=== PATIENT | female | born 1930 | race Caucasian/White ===

== ENCOUNTER → 2016-06-24 | Outpatient (CLI) | payer MEDICARE, BC | LOC: GMAJ 10:31 | PROVIDERS: ATTEND Family Medicine | DX: E11.9 Type 2 diabetes mellitus without complications (principal); I10 Essential (primary) hypertension; E78.5 Hyperlipidemia, unspecified ==

== ENCOUNTER 2016-10-20 13:37 | Emergency (ER) | payer MEDICARE ==
[2016-10-20 13:49] VITALS: TEMP 98.5
--- NOTE | 2016-10-20 14:00 | ED.PDOC ---
History of Present Illness - General Chief Complaint: Chest Pain/WI Stated Complaint: Chest discomfort Time Seen by Provider: 10/20/16 13:57 Source: patient, family Exam Limitations: no limitations - History of Present Illness Initial Comments: Patient reports sudden onset of chest pain that is described as being located in bilateral breasts. Patient states that pain was sharp and 7 out of 10 in intensity. Patient reports that pain lasted approximately 2 hours before subsiding on its own. Patient denies pain at the current time. She states that she had a similar episode last night that began during dinner time however the pain subsided when patient laid down to go to sleep. Timing/Duration: 7-24 hours, intermittent, resolved prior to arrival Severity/Quality: moderate, sharp Chest Pain Radiation: no radiation Activities at Onset: none Improving Factors: nothing Worsening Factors: nothing Nitro Today/Relief: no nitro taken today Aspirin Treatment Today: 81 mg x 1 Associated Symptoms: denies symptoms Allergies/Adverse Reactions: Allergies Sulfa Antibiotics Allergy (Verified 10/20/16 13:45) Home Medications: Ambulatory Orders Aspirin [Aspirin Adult Low Dose] 81 mg PO DAILY 10/20/16 Atenolol [Tenormin] 25 mg PO DAILY 10/20/16 glipiZIDE [Glucotrol] 5 mg PO DAILY 10/20/16 metFORMIN HCL [Glucophage] 1,000 mg PO BID 10/20/16 Review of Systems - Review of Systems Constitutional: Denies: chills, fever EENTM: Denies: ear pain, throat pain Respiratory: States: cough - chronic. Denies: short of breath Cardiology: States: see HPI, chest pain. Denies: palpitations, syncope Gastrointestinal/Abdominal: Denies: abdominal pain, diarrhea, nausea Genitourinary: Denies: dysuria, frequency Musculoskeletal: Denies: joint pain, muscle pain Skin: Denies: change in color, lesions Neurological: Denies: numbness, paresthesia Endocrine: Denies: increased hunger, increased thirst Family Medical History - Family History Mother Family History: No Known Living Status: Physical Exam - Physical Exam General Appearance: Alert, Comfortable, No apparent distress, Well Developed, Well Groomed, Well Hydrated Eyes, Ears, Nose, Throat Exam: normal ENT inspection Neck: normal inspection Respiratory: chest non-tender, lungs clear, normal breath sounds Cardiovascular/Chest: regular rate, rhythm, no murmur Gastrointestinal/Abdominal: non tender, soft Extremity: normal range of motion, no calf tenderness, pedal edema - 1+ Neurologic: no motor/sensory deficits, alert, normal mood/affect, oriented x 3 Skin Exam: normal color, warm/dry Progress - Progress Progress: 10/20/16 15:00 Patient is resting comfortably at this time vital signs remained stable. There has been no reoccurrence of chest pain since patient has been in the ED. Old records were reviewed revealing patient has not been to the emergency department for evaluation in the past.lab findings discussed with patient and family members at bedside. In light of normal EKG and unremarkable lab work including cardiac enzymes I feel patient is appropriate for discharge and outpatient follow-up with PCP as chest pain is atypical in nature and has resolved on its own. Patient and family members were instructed to return if chest pain returns or symptoms worsen. - EKG/XRAY/CT EKG: Sinus - @68bpm, nl intervals, nl axis, good r wave progression, no ST T wave changes - no previous ekg for comparison. XRAY: chest - no acute findings as per rad. Departure - Departure Clinical Impression: Atypical chest pain Time of Disposition: 15:29 Disposition: Discharge to Home or Self Care Condition: Good Departure Forms: ED Discharge - Pt. Copy, Patient Portal Self Enrollment Instructions: DI for Atypical Chest Pain Diet: resume usual diet Home Medications: Ambulatory Orders Aspirin [Aspirin Adult Low Dose] 81 mg PO DAILY 10/20/16 Atenolol [Tenormin] 25 mg PO DAILY 10/20/16 glipiZIDE [Glucotrol] 5 mg PO DAILY 10/20/16 metFORMIN HCL [Glucophage] 1,000 mg PO BID 10/20/16 Additional Instructions: Follow-up with primary care physician in one to 2 days for further evaluation and treatment.
[2016-10-20] MEDS ORDERED: SODIUM CHLORIDE 0.9% (FLUSH) 10 ML SYG IV PRN (14:07)
[2016-10-20] MEDS ORDERED: ASPIRIN TABLET 325 MG TAB PO ONE (14:07)
--- NOTE | 2016-10-20 14:28 | RAD ---
EXAM DESCRIPTION: Chest,1 View CLINICAL HISTORY: 85 years, Female, chest pain COMPARISON: July 02 FINDINGS: Adequate inspiration. Scarring at the lung bases. Old left rib fractures. Cardiac silhouette normal. S-curvature of the thoracolumbar spine IMPRESSION: Chronic lung change with normal heart size Electronically signed by: Jerry Sandy MD 10/20/2016 2:28 PM CDT
[2016-10-20 15:37] VITALS: BP 186/81; O2SAT 97
== END 2016-10-20 15:42 | disposition home or self-care (01) ==
LOC: ER 13:37
DX: R07.89 Other chest pain (principal); Z88.2 Allergy status to sulfonamides; Z79.82 Long term (current) use of aspirin; Z79.899 Other long term (current) drug therapy

== ENCOUNTER → 2016-12-22 | Outpatient (CLI) | payer MEDICARE | LOC: YCHH 08:31 | PROVIDERS: ATTEND Family Medicine | DX: E11.9 Type 2 diabetes mellitus without complications (principal); G62.9 Polyneuropathy, unspecified; E78.5 Hyperlipidemia, unspecified; D64.9 Anemia, unspecified; E03.9 Hypothyroidism, unspecified ==

== ENCOUNTER → 2017-10-21 | Outpatient (CLI) | payer MEDICARE ==
--- NOTE | 2017-10-21 12:11 | MRI ---
EXAM DESCRIPTION: Brain w/oContrast CLINICAL HISTORY: 86 years Female, TIA COMPARISON: None available. TECHNIQUE: Multiplanar multiecho imaging of the brain was performed without the administration of intravenous contrast. FINDINGS: Moderate periventricular white matter ischemia and moderate diffuse cortical volume loss is noted. No acute major vascular territorial infarct or acute intraparenchymal hemorrhage. No intra-axial or extra-axial fluid collections are identified. The cisterns and ventricles appear normal in caliber. The sella and suprasellar regions demonstrate no gross abnormality. The structures of the posterior fossa are intact. The visualized paranasal sinuses and mastoid air cells appear normal. The globes are intact bilaterally. Review of the bones demonstrates no gross abnormality. IMPRESSION: Moderate periventricular white matter ischemia and moderate diffuse cortical volume loss is noted. No acute intracranial process. Electronically signed by: Analia Rosales MD 10/21/2017 12:10 PM CDT
== END ==
LOC: MRI 09:00
PROVIDERS: ATTEND Family Medicine
DX: G45.9 Transient cerebral ischemic attack, unspecified (principal)

== ENCOUNTER → 2018-02-23 | Outpatient (CLI) | payer MEDICARE ==
--- NOTE | 2018-02-23 14:57 | RAD ---
EXAM DESCRIPTION: Chest,2 Views CLINICAL HISTORY: Cough COMPARISON: Chest radiograph dated October 28, 2017 TECHNIQUE: PA and lateral views of the chest FINDINGS: Cardiomediastinal silhouette and pulmonary vascularity are within normal limits. Lungs are clear without focal consolidations. Costophrenic angles are sharp. No pneumothorax. Degenerative changes of the thoracic spine. IMPRESSION: No radiographic evidence for acute cardiopulmonary process. Electronically signed by: Iain Manzanares MD 02/23/2018 2:55 PM CDT
== END ==
LOC: RAD 14:30
PROVIDERS: ATTEND Family Medicine
DX: R05 Cough (principal)

== ENCOUNTER → 2018-04-14 | Outpatient (CLI) | payer MEDICARE | LOC: YCHH 15:34 | PROVIDERS: ATTEND Family Medicine | DX: N39.0 Urinary tract infection, site not specified (principal) ==

== ENCOUNTER → 2018-04-22 | Outpatient (CLI) | payer MEDICARE | LOC: YCHH 10:34 | PROVIDERS: ATTEND Family Medicine | DX: E11.21 Type 2 diabetes mellitus with diabetic nephropathy (principal); N39.0 Urinary tract infection, site not specified; D64.9 Anemia, unspecified ==

== ENCOUNTER → 2018-05-04 | Outpatient (CLI) | payer MEDICARE | LOC: GMAJ 11:09 | PROVIDERS: ATTEND Family Medicine | DX: G30.9 Alzheimer's disease, unspecified (principal) ==

== ENCOUNTER → 2018-05-11 | Outpatient (CLI) | payer MEDICARE ==
--- NOTE | 2018-05-11 13:58 | MRI ---
EXAM DESCRIPTION: Brain w/oContrast CLINICAL HISTORY: ALZHEIMER'S DISEASE COMPARISON: None available TECHNIQUE: Non contrast MRI of the brain is performed according to our usual protocol including multiplanar multi sequence technique. FINDINGS: Sagittal T1 images show intact corpus callosum. Prominent gyral and sulcal fold pattern. Mild thinning of the corpus callosum. Empty sella is incidentally noted. Normal pituitary gland with normal T1 appearance of the zachary and medulla and upper cervical cord. Normal signal intensity within the clivus and calvarium. Axial T2 fat sat images reveal preservation of intracranial vascular flow voids. Extensive increased signal intensity in the white matter consistent with chronic microvascular ischemic changes. Prominent sulci with prominent ventricles are consistent with generalized age-related cerebral volume loss. Temporal horns are prominent and there is thinning of the medial temporal lobe right more than left. The globes appear intact and symmetrical. No abnormal fluid signal in the paranasal sinuses, tympanic cavities or mastoid air cells. Axial flair images show increased signal intensity in the periventricular white matter, centrum semiovale and subcortical white matter consistent with chronic microvascular ischemic changes related to aging, diabetes or hypertension. Marked thinning of the medial temporal lobes, right more than left, is consistent with the clinical diagnosis of Alzheimer's disease. Extensive microvascular ischemic changes in the cerebral white matter would be consistent with multi-infarct dementia. Diffusion weighted images are positive for focal increased signal intensity in the left occipital castandea matter and subcortical white matter indicating restricted diffusion of subacute infarction. ADC mapping shows low in signal intensity in this area. Axial T1 images show normal castaneda-white matter differentiation. No high signal intensity hemorrhagic lesion of the brain parenchyma. No subdural hematoma. Axial susceptibility weighted images are negative for focal signal loss to suggest abnormal brain parenchymal calcification or hemosiderin deposition. IMPRESSION: Small focus of restricted diffusion in the left occipital lobe suggesting subacute infarction. Generalized cerebral volume loss with prominent ventricles consistent with global atrophy. See above. Extensive chronic microvascular ischemic changes in the cerebral white matter. Electronically signed by: Tavo Carrington MD 05/11/2018 1:57 PM [employer]
== END ==
LOC: MRI 10:12
PROVIDERS: ATTEND Family Medicine
DX: G30.9 Alzheimer's disease, unspecified (principal); I67.82 Cerebral ischemia

== ENCOUNTER 2018-12-12 12:05 | Emergency (ER) | payer MEDICARE ==
[2018-12-12 12:43] VITALS: TEMP 98.5
--- NOTE | 2018-12-12 12:44 | ED.PDOC ---
History of Present Illness - General Time Seen by Provider: 12/12/18 12:37 Source: patient Exam Limitations: no limitations - History of Present Illness Initial Comments: Patient presents with bilateral thoracic pain for 18 months. It is throbbing, non-radiating, worse with movement, better with rest, constant. Today, her home health nurse was taking her blood pressure and she felt pain in the sternum. She was instructed to come here. Has NIDDM. No cardiac history. No first degree relatives with cardiac disease. No history of tobacco use. No history of bipedal edema. No orthopnea. Has AZEVEDO at 20 feet. Has a history of asthma that she says is from second hand smoke from her father. She does not currently use any inhalers and denies COPD. No other complaints today. Timing/Duration: other - 18 months Severity: mild Improving Factors: rest Worsening Factors: movement Associated Symptoms: other - as in HPI Allergies/Adverse Reactions: Allergies Bacitracin [From Polysporin] Allergy (Verified 10/28/17 08:02) Latex Allergy (Verified 10/28/17 08:02) Penicillins Allergy (Verified 10/28/17 08:02) Polymyxin B [From Polysporin] Allergy (Verified 10/28/17 08:02) Sulfa Antibiotics Allergy (Verified 10/20/16 13:45) Home Medications: Ambulatory Orders Aspirin [Aspirin Adult Low Dose] 81 mg PO DAILY 10/20/16 glipiZIDE [Glucotrol] 5 mg PO DAILY 10/20/16 metFORMIN HCL [Glucophage] 1,000 mg PO BID 10/20/16 Buspirone HCl 5 mg PO BID 12/12/18 Calcium Carbonate-Vitamin D [Calcium + D3 600-200 mg-Unit] 1 tab PO DAILY 12/12/18 Donepezil HCl [Aricept] 5 mg PO DAILY 12/12/18 Fluticasone Propionate (Nasal) [Hm Allergy Relief Nasal S] 50 mcg INH DAILY 12/12/18 Metoprolol Succinate [Metoprolol Succinate ER] 25 mg PO DAILY 12/12/18 Ondansetron HCl [Zofran] 4 mg PO PRN PRN 12/12/18 Review of Systems - Review of Systems Constitutional: States: no symptoms reported EENTM: States: no symptoms reported Respiratory: States: see HPI Cardiology: States: no symptoms reported Gastrointestinal/Abdominal: States: no symptoms reported Genitourinary: States: no symptoms reported Musculoskeletal: States: see HPI Skin: States: no symptoms reported Neurological: States: no symptoms reported Endocrine: States: no symptoms reported Hematologic/Lymphatic: States: no symptoms reported Past Medical History (General) - Patient Medical History Hx Seizures: No Hx Stroke: No Hx Asthma: No Hx of COPD: No Hx Cardiac Disorders: No Hx Congestive Heart Failure: No Hx Pacemaker: No Hx Hypertension: Yes Hx Diabetes: Yes Hx Cancer: Yes Family Medical History - Family History Mother Family History: No Known Living Status: Hx Family Cancer: Yes - colon-mom Hx Family;Other: dad-amyloidosis,copd Physical Exam - Physical Exam General Appearance: Alert Eye Exam: bilateral normal Ears, Nose, Throat: normal ENT inspection Neck: non-tender, full range of motion, supple Respiratory: chest non-tender, lungs clear, normal breath sounds, no respiratory distress Cardiovascular/Chest: normal peripheral pulses, regular rate, rhythm, no edema, other - ribs and sternum NTTP Gastrointestinal/Abdominal: normal bowel sounds, non tender, soft Back Exam: normal inspection, no CVA tenderness Extremity: normal range of motion, non-tender, normal inspection 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, no motor/sensory deficits, alert, normal mood/affect, oriented x 3 Skin Exam: normal color Lymphatic: no adenopathy Progress - Progress Progress: 12/12/18 16:57 Laboratory Tests 12/12/18 12/12/18 12/12/18 12:55 12:55 12:55 WBC 9.8 RBC 3.56 L Hgb 11.3 L Hct 33.7 L MCV 94.5 MCH 31.6 H MCHC 33.4 RDW 13.4 Plt Count 280 MPV 8.4 Absolute Neuts (auto) 7.40 H Absolute Lymphs (auto) 1.50 Absolute Monos (auto) 0.60 Absolute Eos (auto) 0.20 Absolute Basos (auto) 0.00 Neutrophils % 75.9 Lymphocytes % 15.1 L Monocytes % 6.2 Eosinophils % 2.4 Basophils % 0.4 PT 9.8 INR 0.98 PTT (SP) 26.7 D-Dimer, Quantitative Sodium 137 Potassium 4.9 Chloride 102 Carbon Dioxide 23 Anion Gap 16.9 BUN 24 H Creatinine 1.01 BUN/Creatinine Ratio 23.8 H POC Glucose Random Glucose 68 L Serum Osmolality 276.2 Calcium 9.5 Total Bilirubin 0.3 AST 17 ALT 13 Alkaline Phosphatase 47 Creatine Kinase CK-MB (CK-2) CK-MB (CK-2) % Troponin I B-Natriuretic Peptide Serum Total Protein 7.3 Albumin 3.8 Globulin 3.5 Albumin/Globulin Ratio 1.1 TSH Thyroxine (T4) 12/12/18 12/12/18 12/12/18 12:55 12:55 12:55 WBC RBC Hgb Hct MCV MCH MCHC RDW Plt Count MPV Absolute Neuts (auto) Absolute Lymphs (auto) Absolute Monos (auto) Absolute Eos (auto) Absolute Basos (auto) Neutrophils % Lymphocytes % Monocytes % Eosinophils % Basophils % PT INR PTT (SP) D-Dimer, Quantitative 0.72 H* Sodium Potassium Chloride Carbon Dioxide Anion Gap BUN Creatinine BUN/Creatinine Ratio POC Glucose 65 L Random Glucose Serum Osmolality Calcium Total Bilirubin AST ALT Alkaline Phosphatase Creatine Kinase 31 CK-MB (CK-2) 1.9 CK-MB (CK-2) % Not Reportable Troponin I < 0.02 B-Natriuretic Peptide 29.1 Serum Total Protein Albumin Globulin Albumin/Globulin Ratio TSH 3.60 Thyroxine (T4) 8.50 12/12/18 15:20 WBC RBC Hgb Hct MCV MCH MCHC RDW Plt Count MPV Absolute Neuts (auto) Absolute Lymphs (auto) Absolute Monos (auto) Absolute Eos (auto) Absolute Basos (auto) Neutrophils % Lymphocytes % Monocytes % Eosinophils % Basophils % PT INR PTT (SP) D-Dimer, Quantitative Sodium Potassium Chloride Carbon Dioxide Anion Gap BUN Creatinine BUN/Creatinine Ratio POC Glucose Random Glucose Serum Osmolality Calcium Total Bilirubin AST ALT Alkaline Phosphatase Creatine Kinase CK-MB (CK-2) CK-MB (CK-2) % Troponin I < 0.02 B-Natriuretic Peptide Serum Total Protein Albumin Globulin Albumin/Globulin Ratio TSH Thyroxine (T4) Troponin x 2 negative. EKG showed NSR. Follow up EKG showed tachycardia. The episodes of tachycardia were infrequent and only lasted a few seconds. The patient's symptoms did not change during tachycardia. I spoke with her pcp, Dr. Carrasquillo, and it was agreed to fit the patient with a Holter monitor and see how often these events occur and if they need to be treated or are just an incidental and temporary finding. Care instructions given. E.R. warnings given. Questions were elicited and answered. Patient voiced understanding and agreement with the plan. Departure - Departure Clinical Impression: Chest pain, Tachycardia, paroxysmal Disposition: Discharge to Home or Self Care Condition: Good Diet: resume usual diet Activity: increase activity as tolerated Referrals: Junior Carrasquillo MD [Primary Care Provider] - 1-2 Weeks Home Medications: Ambulatory Orders Aspirin [Aspirin Adult Low Dose] 81 mg PO DAILY 10/20/16 glipiZIDE [Glucotrol] 5 mg PO DAILY 10/20/16 metFORMIN HCL [Glucophage] 1,000 mg PO BID 10/20/16 Buspirone HCl 5 mg PO BID 12/12/18 Calcium Carbonate-Vitamin D [Calcium + D3 600-200 mg-Unit] 1 tab PO DAILY 12/12/18 Donepezil HCl [Aricept] 5 mg PO DAILY 12/12/18 Fluticasone Propionate (Nasal) [Hm Allergy Relief Nasal S] 50 mcg INH DAILY 12/12/18 Metoprolol Succinate [Metoprolol Succinate ER] 25 mg PO DAILY 12/12/18 Ondansetron HCl [Zofran] 4 mg PO PRN PRN 12/12/18 Additional Instructions: Return the Holter monitor in 48 hours for evaluation. See Dr. Carrasquillo in 5-7 days for follow up. Return to the E.R. for new or worsening symptoms. Critical Care Note - Critical Care Note Total Time (mins): 120
[2018-12-12] MEDS ORDERED: ASPIRIN (CHEWABLE) 81 MG TAB PO ONE (12:47)
--- NOTE | 2018-12-12 13:29 | RAD ---
EXAM DESCRIPTION: Chest,2 Views CLINICAL HISTORY: 87 years Female, bilateral side pain COMPARISON: Chest radiograph 02/23/2018 TECHNIQUE: Frontal and lateral views of the chest. IMPRESSION: Cardiac silhouette is normal in size. Aorta is partially calcified. Scattered bibasilar scarring or atelectasis. There is a 2.5 cm ovoid density in the left lung apex. CT chest with contrast can further evaluate. No pleural effusion or pneumothorax. Chronic left rib fractures. Thoracic spondylosis. Electronically signed by: Woo North MD 12/12/2018 1:27 PM CDT
--- NOTE | 2018-12-12 14:58 | CT ---
EXAM DESCRIPTION: CTA Chest CLINICAL HISTORY: side pain, sternal pain, elveated D-dimer COMPARISON: Chest x-ray from the same day. TECHNIQUE: Postcontrast multidetector CT imaging of the chest was performed using a pulmonary embolism protocol. Multiplanar reconstructions were generated. This exam was performed according to our departmental dose-optimization program which includes automated exposure control, adjustment of the mA and/or kV according to patient size and/or use of iterative reconstruction technique. MIP images were provided. No surface rendered 3-D images. FINDINGS: Diagnostic quality: Adequate. Pulmonary embolism: None. Right heart strain: None. Pulmonary arteries: Normal in caliber. Lung parenchyma: No acute airspace filling disease is present. No concerning pulmonary nodules. Trace atelectasis usual distribution. Pleural effusion: None. Central airways: Normal. Adenopathy: None. Heart and great vessels: Heart size is normal. Coronary vascular calcifications are present. No pericardial effusion. There is atherosclerotic disease involving the left subclavian contributing to a mild stenosis. No high-grade stenosis of the subclavian arteries. Upper abdomen: Unremarkable. Bones: No aggressive lytic or blastic osseous lesions are present. Multilevel bridging syndesmophytes noted throughout most of the thoracic spine. This can be seen with a seronegative spondyloarthropathy such as ankylosing spondylitis. Diffuse idiopathic skeletal hyperostosis is within the differential. Advanced degenerative spondylosis noted within the visualized portions of the lumbar spine on the bellmaker view. IMPRESSION: Negative for pulmonary embolism or acute cardiopulmonary disease. Coronary vascular disease. Incidental chronic findings described above. Ovoid density seen on comparison chest x-ray from the same day projecting over the left lung apex is extrinsic to the patient. Electronically signed by: Delonte Potts MD 12/12/2018 2:56 PM CDT
[2018-12-12 15:38] VITALS: BP 161/95
[2018-12-12 17:16] VITALS: O2SAT 96
== END 2018-12-12 17:22 | disposition home or self-care (01) ==
LOC: ER 12:05
DX: R07.9 Chest pain, unspecified (principal); I47.9 Paroxysmal tachycardia, unspecified; I10 Essential (primary) hypertension; E11.9 Type 2 diabetes mellitus without complications; Z85.9 Personal history of malignant neoplasm, unspecified; Z79.82 Long term (current) use of aspirin; Z79.899 Other long term (current) drug therapy; Z88.2 Allergy status to sulfonamides; Z88.0 Allergy status to penicillin; Z88.8 Allergy status to other drugs, medicaments and biological substances; Z91.040 Latex allergy status

== ENCOUNTER 2018-12-13 15:49 | Emergency (ER) | payer MEDICARE ==
[2018-12-13] MEDS ORDERED: ASPIRIN TABLET 325 MG TAB PO ONE (15:52)
[2018-12-13] MEDS ORDERED: ALUM & MAG HYDROX-SIMETHICONE 30 ML, LIDOCAINE VISCOUS 2% 15 ML PO ONE ×2 (15:52)
[2018-12-13] MEDS ORDERED: LIDOCAINE HCL 2% (MOUTH-THROAT) 15 ML UD ONE (15:55)
[2018-12-13] MEDS ORDERED: ALUM & MAG HYDROX-SIMETHICONE 30 ML UD ONE (15:56)
[2018-12-13] MEDS ORDERED: METOPROLOL TARTRATE 25 MG TAB PO ONE (16:03)
--- NOTE | 2018-12-13 16:50 | RAD ---
EXAM DESCRIPTION: Obstructive series, 3 radiographs CLINICAL HISTORY: Epigastric and substernal abdominal pain. Chest pain FINDINGS/ IMPRESSION: Comparison 12/12/2018 Scattered large and small intestinal bowel gas without luminal distention to diagnose mechanical bowel obstruction. No pneumatosis. No free intraperitoneal air. No organomegaly or obvious abdominal mass lesion Normal heart size. Atherosclerotic aorta. Normal mediastinal contours No pulmonary edema, infiltrate or effusion No pneumothorax. No acute bony abnormality Electronically signed by: Jacobo Doherty MD 12/13/2018 4:47 PM CDT
[2018-12-13] MEDS ORDERED: MAGNESIUM SULFATE PREMIX 2GM 2 GM in PREMIX BAG 1 BAG IVPB ONE (17:16)
[2018-12-13] MEDS ORDERED: MAGNESIUM SULFATE PREMIX 2GM 50 ML IVPB ONE (17:32)
--- NOTE | 2018-12-13 18:03 | CT ---
EXAM: CT Abdomen and Pelvis Without Intravenous Contrast CLINICAL HISTORY: 87 years old and is Female; epigastric pain, rise in wbc TECHNIQUE: Axial computed tomography images of the abdomen and pelvis without intravenous contrast. Sagittal and coronal reformatted images were created and reviewed. This CT exam was performed using one or more of the following dose reduction techniques: automated exposure control, adjustment of the mA and/or kV according to patient size, and/or use of iterative reconstruction technique. COMPARISON: 12/12/2018 CT chest FINDINGS: Limitations: None. Lung bases: There is a 7 mm noncalcified right lower lobe pulmonary nodule. Linear scarring and/or atelectasis present in the bases. ABDOMEN: Liver: Unremarkable. Gallbladder and bile ducts: Unremarkable. No calcified stones. No ductal dilation. Pancreas: Unremarkable. No ductal dilation. Spleen: Unremarkable. No splenomegaly. Adrenals: Unremarkable. No mass. Kidneys and ureters: Unremarkable. No obstructing stones. No hydronephrosis. Stomach and bowel: Despite incomplete distention, the distal stomach and proximal duodenum are thickened and inflamed. No evidence of acute hemorrhage. There is colonic diverticulosis. No diverticulitis noted. There is mild fluid layering throughout the intestinal tract without obstruction. PELVIS: Appendix: No findings to suggest acute appendicitis. Bladder: Unremarkable. No stones. Reproductive: Unremarkable as visualized. ABDOMEN and PELVIS: Intraperitoneal space: Unremarkable. No free air. No significant fluid collection. Bones/joints: There is diffuse degenerative change throughout the spine and hips. No acute fracture. No dislocation. Soft tissues: Unremarkable. Vasculature: Unremarkable. No abdominal aortic aneurysm. Lymph nodes: Unremarkable. No enlarged lymph nodes. IMPRESSION: 1. There is thickening and inflammation of the distal stomach and proximal duodenum most concerning for peptic ulcer disease. No evidence of hemorrhage or perforation. 2. 7 mm right lower lobe pulmonary nodule. ACR White Paper guidelines (MacMahon, et al. Radiology 2017; 284(1):228-43) suggest the following. For low-risk patients recommend follow-up chest CT at 6-12 months. If unchanged consider an additional follow-up CT at 18-24 months. For high-risk patients initial follow-up chest CT at 6-12 months and if unchanged, 18-24 months. Electronically signed by: Faiza Basurto MD 12/13/2018 6:00 PM CDT
--- NOTE | 2018-12-13 18:22 | ED.PDOC ---
History of Present Illness - General Chief Complaint: Chest Pain/IN Stated Complaint: Chest pain Time Seen by Provider: 12/13/18 15:52 Source: patient Exam Limitations: no limitations - History of Present Illness Initial Comments: the patient is an 87-year-old female presenting to the emergency room secondary to epigastric and substernal chest pain starting at about noon today. She had a similar set of symptoms yesterday and underwent a very extensive workup here including lab work and a CT angiogram of the chest. No acute pathology was otherwise found that she did have significant osteoarthritic changes of the back. She did have a little bit of nausea today. Syncope or near syncope. She was noted yesterday to have some episodes of mild tachycardia. It was caught today on the EKG that she does have some mild paroxysmal atrial fibrillation. It is largely rate controlled however in the 80s to 90s. She apparently does have a history of hypomagnesemia but has not been taking any. Timing/Duration: 1-3 hours Severity: mild Improving Factors: nothing - the GI cocktail actually did help Worsening Factors: nothing Associated Symptoms: chest pain, loss of appetite, nausea/vomiting Allergies/Adverse Reactions: Allergies Bacitracin [From Polysporin] Allergy (Verified 10/28/17 08:02) Latex Allergy (Verified 10/28/17 08:02) Penicillins Allergy (Verified 10/28/17 08:02) Polymyxin B [From Polysporin] Allergy (Verified 10/28/17 08:02) Sulfa Antibiotics Allergy (Verified 10/20/16 13:45) Home Medications: Ambulatory Orders Aspirin [Aspirin Adult Low Dose] 81 mg PO DAILY 10/20/16 glipiZIDE [Glucotrol] 5 mg PO DAILY 10/20/16 metFORMIN HCL [Glucophage] 1,000 mg PO BID 10/20/16 Buspirone HCl 5 mg PO BID 12/12/18 Calcium Carbonate-Vitamin D [Calcium + D3 600-200 mg-Unit] 1 tab PO DAILY 12/12/18 Donepezil HCl [Aricept] 5 mg PO DAILY 12/12/18 Fluticasone Propionate (Nasal) [Hm Allergy Relief Nasal S] 50 mcg INH DAILY 12/12/18 Metoprolol Succinate [Metoprolol Succinate ER] 25 mg PO DAILY 12/12/18 Ondansetron HCl [Zofran] 4 mg PO PRN PRN 12/12/18 Famotidine [Pepcid Tab] 20 mg PO BID #60 tab 12/13/18 Magnesium Oxide 400 mg PO BID #60 cap 12/13/18 Sucralfate Tab [Carafate Tab] 1 gm PO QID #120 tab 12/13/18 Review of Systems - Review of Systems Constitutional: States: malaise EENTM: States: no symptoms reported Respiratory: States: no symptoms reported Cardiology: States: no symptoms reported, chest pain Gastrointestinal/Abdominal: States: abdominal pain, nausea, vomiting Genitourinary: States: no symptoms reported Musculoskeletal: States: no symptoms reported Skin: States: no symptoms reported Neurological: States: no symptoms reported Endocrine: States: no symptoms reported All other Systems: No Change from Baseline Past Medical History (General) - Patient Medical History Hx Seizures: No Hx Stroke: No Hx Asthma: No Hx of COPD: No Hx Cardiac Disorders: No Hx Congestive Heart Failure: No Hx Pacemaker: No Hx Hypertension: Yes Hx Diabetes: Yes Hx Cancer: Yes - Vaccination History Hx Influenza Vaccination: No Hx Pneumococcal Vaccination: No - Social History Hx Tobacco Use: No Hx Alcohol Use: No - Activities of Daily Living Correction/Assisted Living (if applicable):: [facility] Family Medical History - Family History Mother Family History: No Known Living Status: Hx Family Cancer: Yes - colon-mom Hx Family;Other: dad-amyloidosis,copd Physical Exam - Physical Exam General Appearance: Alert, Anxious, No apparent distress Eye Exam: bilateral normal Ears, Nose, Throat: hearing grossly normal, normal ENT inspection, normal pharynx Neck: full range of motion, supple Respiratory: lungs clear, normal breath sounds, no respiratory distress, no accessory muscle use Cardiovascular/Chest: normal peripheral pulses, no edema, tachycardia, other - telemetry shows intermittent mild atrial fibrillation with heart rates in the 80s to 90s dropping down in the 50s to 60s when she cardioverts Peripheral Pulses: radial,right: 2+, radial,left: 2+ Gastrointestinal/Abdominal: soft, other - epigastric discomfort palpation. No rebound or peritoneal signs. 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, alert, normal mood/affect, oriented x 3 Skin Exam: normal color Comments: Vital Signs - 24 hr 12/13/18 12/13/18 12/13/18 15:49 16:45 17:01 Temperature 98.8 F 98.7 F Pulse Rate [ 78 68 71 Apical] Respiratory 20 20 20 Rate Blood Pressure 194/87 150/84 159/71 [Left Arm] O2 Sat by Pulse 95 91 L 93 L Oximetry 12/13/18 17:47 Temperature 98.7 F Pulse Rate [ 66 Apical] Respiratory 20 Rate Blood Pressure 176/70 [Left Arm] O2 Sat by Pulse 94 L Oximetry Progress - Progress Progress: 12/13/18 18:27 the patient is an 87-year-old female presenting to the emergency room secondary to epigastric and substernal chest pain. This appears to be due to peptic ulcer disease as indicated by symptoms and a CT scan. The patient is going to be placed on Carafate and famotidine for the next month. She may get benefit from H. pylori testing in the future. Additionally the patient was found to have significant hypomagnesemia with a level down to 1.2. She was supplemented with IV form and is going to be written for magnesium oxide. She needs to have his level rechecked in a couple of weeks. She does also have what appears to be asymptomatic paroxysmal atrial fibrillation. She does need to continue her metoprolol. Heart rate is around 100 when she is in atrial fibrillation. Correction of the magnesium over the coming week may also help w ith this issue. I'm not going to add any additional blood thinners to the patient at this time. She needs to be followed up for this with her primary care doctor in the coming week. She is currently wearing a Holter monitor as well. ER warnings were given for any acute worsening. - Results/Orders Results/Orders: acute abdominal series fails to show any acute pathology. No obvious obstruction. No free air. CT of abdomen and pelvis shows what appears to be significant pyloric and duodenal inflammation. This is consistent withpeptic ulcer disease. No obvious perforation. See details of report otherwise. EKG actually shows paroxysmal atrial fibrillation. The EKG itself does show the transition from atrial fibrillation at a rate of about 100 bpm down to sinus rhythm at a rate of about 60-70 bpm. Normal axis. No definitive ST segment or T-wave changes indicative of acute ischemia. Normal QT interval. Laboratory Tests 12/13/18 12/13/18 12/13/18 16:25 16:25 16:25 WBC 14.1 H D RBC 3.58 L Hgb 11.2 L Hct 33.9 L MCV 94.8 MCH 31.3 H MCHC 33.0 RDW 13.5 Plt Count 276 MPV 8.4 Absolute Neuts (auto) 12.20 H Absolute Lymphs (auto) 0.90 L Absolute Monos (auto) 0.70 Absolute Eos (auto) 0.30 Absolute Basos (auto) 0.00 Neutrophils % 86.7 H Lymphocytes % 6.5 L Monocytes % 4.8 Eosinophils % 1.8 Basophils % 0.2 PT 9.5 INR 0.95 PTT (SP) 26.7 D-Dimer, Quantitative 0.85 H* Sodium 133 L Potassium 4.7 Chloride 99 L Carbon Dioxide 23 Anion Gap 15.7 BUN 29 H Creatinine 1.09 BUN/Creatinine Ratio 26.6 H Random Glucose 143 H D Serum Osmolality 274.7 L Calcium 9.3 Magnesium 1.2 L Total Bilirubin 0.2 D AST 12 ALT 11 Alkaline Phosphatase 51 Creatine Kinase 28 CK-MB (CK-2) 1.6 CK-MB (CK-2) % Not Reportable Troponin I < 0.02 B-Natriuretic Peptide 44.3 Serum Total Protein 7.1 Albumin 3.7 Globulin 3.4 Albumin/Globulin Ratio 1.1 Amylase 48 Lipase 44 TSH 12/13/18 16:25 WBC RBC Hgb Hct MCV MCH MCHC RDW Plt Count MPV Absolute Neuts (auto) Absolute Lymphs (auto) Absolute Monos (auto) Absolute Eos (auto) Absolute Basos (auto) Neutrophils % Lymphocytes % Monocytes % Eosinophils % Basophils % PT INR PTT (SP) D-Dimer, Quantitative Sodium Potassium Chloride Carbon Dioxide Anion Gap BUN Creatinine BUN/Creatinine Ratio Random Glucose Serum Osmolality Calcium Magnesium Total Bilirubin AST ALT Alkaline Phosphatase Creatine Kinase CK-MB (CK-2) CK-MB (CK-2) % Troponin I B-Natriuretic Peptide Serum Total Protein Albumin Globulin Albumin/Globulin Ratio Amylase Lipase TSH 4.61 Departure - Departure Clinical Impression: Paroxysmal atrial fibrillation, Peptic ulcer disease, Hypomagnesemia Disposition: Discharge to Home or Self Care Condition: Fair Departure Forms: ED Discharge - Pt. Copy, Patient Portal Self Enrollment Instructions: Gastric Ulcer (DC), Low Magnesium Level, Atrial Fibrillation (DC) Diet: bland diet Activity: increase activity as tolerated Referrals: Junior Carrasquillo MD [Primary Care Provider] - 1-5 Days Prescriptions: Famotidine [Pepcid Tab] 20 mg PO BID #60 tab Magnesium Oxide 400 mg PO BID #60 cap Sucralfate Tab [Carafate Tab] 1 gm PO QID #120 tab Home Medications: Ambulatory Orders Aspirin [Aspirin Adult Low Dose] 81 mg PO DAILY 10/20/16 glipiZIDE [Glucotrol] 5 mg PO DAILY 10/20/16 metFORMIN HCL [Glucophage] 1,000 mg PO BID 10/20/16 Buspirone HCl 5 mg PO BID 12/12/18 Calcium Carbonate-Vitamin D [Calcium + D3 600-200 mg-Unit] 1 tab PO DAILY 12/12/18 Donepezil HCl [Aricept] 5 mg PO DAILY 12/12/18 Fluticasone Propionate (Nasal) [Hm Allergy Relief Nasal S] 50 mcg INH DAILY 12/12/18 Metoprolol Succinate [Metoprolol Succinate ER] 25 mg PO DAILY 12/12/18 Ondansetron HCl [Zofran] 4 mg PO PRN PRN 12/12/18 Famotidine [Pepcid Tab] 20 mg PO BID #60 tab 12/13/18 Magnesium Oxide 400 mg PO BID #60 cap 12/13/18 Sucralfate Tab [Carafate Tab] 1 gm PO QID #120 tab 12/13/18 Additional Instructions: the patient is an 87-year-old female presenting to the emergency room secondary to epigastric and substernal chest pain. This appears to be due to peptic ulcer disease as indicated by symptoms and a CT scan. The patient is going to be placed on Carafate and famotidine for the next month. She may get benefit from H. pylori testing in the future. Additionally the patient was found to have significant hypomagnesemia with a level down to 1.2. She was supplemented with IV form and is going to be written for magnesium oxide. She needs to have his level rechecked in a couple of weeks. She does also have what appears to be asymptomatic paroxysmal atrial fibrillation. She does need to continue her metoprolol. Heart rate is around 100 when she is in atrial fibrillation. Correction of the magnesium over the coming week may also help with this issue. I'm not going to add any additional blood thinners to the patient at this time. She needs to be followed up for this with her primary care doctor in the coming week. She is currently wearing a Holter monitor as well. ER warnings were given for any acute worsening. It would be choi to hold her metformin and anti-inflammatory for the next few days.
[2018-12-13 19:09] VITALS: BP 184/89
[2018-12-13 19:31] VITALS: TEMP 98; O2SAT 96
== END 2018-12-13 19:31 | disposition home or self-care (01) ==
LOC: ER 15:49
DX: I48.0 Paroxysmal atrial fibrillation (principal); K27.9 Peptic ulcer, site unspecified, unspecified as acute or chronic, without hemorrhage or perforation; E83.42 Hypomagnesemia; R11.2 Nausea with vomiting, unspecified; I10 Essential (primary) hypertension; E11.9 Type 2 diabetes mellitus without complications; Z85.9 Personal history of malignant neoplasm, unspecified; Z79.82 Long term (current) use of aspirin; Z79.899 Other long term (current) drug therapy; Z88.8 Allergy status to other drugs, medicaments and biological substances; Z91.040 Latex allergy status; Z88.0 Allergy status to penicillin; Z88.2 Allergy status to sulfonamides
CPT/HCPCS: 36415; 74019; 74176; 80053; 82150; 82550; 82553; 83690; 83735; 83880; 84443; 84484; 85025; 85379; 85610; 85730; 93005; J3475

== ENCOUNTER 2018-12-30 17:08 | Emergency (ER) | payer MEDICARE ==
--- NOTE | 2018-12-30 17:40 | ED.PDOC ---
History of Present Illness - General Chief Complaint: Chest Pain/MS Stated Complaint: chest pain Time Seen by Provider: 12/30/18 17:26 Source: patient, EMS Exam Limitations: other - dementia - History of Present Illness Initial Comments: Patient presents with chest pain for about two hours. She says it is left sided just under the breast, sharp in nature, non-radiating, better when she pushes on it, + multiple previous episodes. She had another episode 24 hours ago. She took a nitrotab yesterday and the pain went away. She has had two nitrotabs today. No cough or dyspnea. Has NIDDM. No other complaints. Timing/Duration: 24 hours, intermittent Severity: mild Improving Factors: other - as in HPI Worsening Factors: nothing Associated Symptoms: denies symptoms Allergies/Adverse Reactions: Allergies Bacitracin [From Polysporin] Allergy (Verified 10/28/17 08:02) Latex Allergy (Verified 10/28/17 08:02) Penicillins Allergy (Verified 10/28/17 08:02) Polymyxin B [From Polysporin] Allergy (Verified 10/28/17 08:02) Sulfa Antibiotics Allergy (Verified 10/20/16 13:45) Home Medications: Ambulatory Orders Aspirin [Aspirin Adult Low Dose] 81 mg PO DAILY 10/20/16 glipiZIDE [Glucotrol] 5 mg PO DAILY 10/20/16 Buspirone HCl 5 mg PO BID 12/12/18 Calcium Carbonate-Vitamin D [Calcium + D3 600-200 mg-Unit] 1 tab PO DAILY 12/12/18 Donepezil HCl [Aricept] 5 mg PO BEDTIME 12/12/18 Fluticasone Propionate (Nasal) [Hm Allergy Relief Nasal S] 50 mcg INH DAILY 12/12/18 Metoprolol Succinate [Metoprolol Succinate ER] 25 mg PO BEDTIME 12/12/18 Ondansetron HCl [Zofran] 4 mg PO PRN PRN 12/12/18 Famotidine [Pepcid Tab] 20 mg PO BID #60 tab 12/13/18 Magnesium Oxide 400 mg PO BID #60 cap 12/13/18 Sucralfate Tab [Carafate Tab] 1 gm PO QID #120 tab 12/13/18 Acetaminophen [Tylenol] 1,000 mg PO PRN 12/30/18 Carboxymethylcellulose Sodium [Retaine Cmc] 0.5 % OP DAILY 12/30/18 Cetirizine HCl [ZyrTEC] 10 mg PO DAILY 12/30/18 Loperamide Cap [Imodium Cap] 2 mg PO PRN 12/30/18 Nitroglycerin 0.4 mg Tab [Nitrostat] 1 ea SL PRN 12/30/18 Phenylephrine W/ Dm-GG [Mucinex Fast-Max Severe C] 20 ml PO PRN 12/30/18 Review of Systems - Review of Systems Constitutional: States: no symptoms reported EENTM: States: no symptoms reported Respiratory: States: no symptoms reported Cardiology: States: see HPI Gastrointestinal/Abdominal: States: no symptoms reported Genitourinary: States: no symptoms reported Musculoskeletal: States: no symptoms reported Skin: States: no symptoms reported Neurological: States: no symptoms reported Endocrine: States: no symptoms reported Hematologic/Lymphatic: States: no symptoms reported Past Medical History (General) - Patient Medical History Hx Seizures: No Hx Stroke: No Hx Dementia: Yes Hx Asthma: No Hx of COPD: No Hx Cardiac Disorders: No Hx Congestive Heart Failure: No Hx Pacemaker: No Hx Hypertension: Yes Hx Diabetes: Yes Hx Cancer: Yes - Leukemia Surgical History: appendectomy - Vaccination History Hx Influenza Vaccination: No Hx Pneumococcal Vaccination: No - Social History Hx Tobacco Use: No Hx Alcohol Use: No - Activities of Daily Living [facility]isted Living (if applicable):: [place] Family Medical History - Family History Mother Family History: No Known Living Status: Hx Family Cancer: Yes - colon-mom Hx Family;Other: dad-amyloidosis,copd Physical Exam - Physical Exam General Appearance: Alert Eye Exam: bilateral normal Ears, Nose, Throat: normal ENT inspection Neck: non-tender, full range of motion, supple Respiratory: lungs clear, normal breath sounds Cardiovascular/Chest: normal peripheral pulses, regular rate, rhythm, no edema Gastrointestinal/Abdominal: normal bowel sounds, non tender, soft Back Exam: normal inspection, no CVA tenderness Extremity: normal range of motion, non-tender, normal inspection Neurologic: no motor/sensory deficits, alert, normal mood/affect, oriented x 3 Skin Exam: normal color Lymphatic: no adenopathy Progress - Progress Progress: 12/30/18 21:44 Laboratory Tests 12/30/18 12/30/18 12/30/18 17:48 17:48 17:48 WBC 10.9 H RBC 3.48 L Hgb 10.9 L Hct 32.8 L MCV 94.2 MCH 31.2 H MCHC 33.1 RDW 12.9 Plt Count 271 MPV 8.5 Absolute Neuts (auto) 8.20 H Absolute Lymphs (auto) 1.70 Absolute Monos (auto) 0.70 Absolute Eos (auto) 0.30 Absolute Basos (auto) 0.00 Neutrophils % 75.5 Lymphocytes % 15.2 L Monocytes % 6.2 Eosinophils % 2.6 Basophils % 0.5 PT 9.3 INR 0.93 PTT (SP) 24.8 Sodium 136 Potassium 4.2 Chloride 97 L Carbon Dioxide 26 Anion Gap 17.2 BUN 27 H Creatinine 1.12 BUN/Creatinine Ratio 24.1 H Random Glucose 220 H Serum Osmolality 283.8 Calcium 9.6 Magnesium 1.8 Total Bilirubin 0.3 AST 13 ALT 12 Alkaline Phosphatase 55 Creatine Kinase CK-MB (CK-2) CK-MB (CK-2) % Troponin I Serum Total Protein 6.9 Albumin 3.5 Globulin 3.4 Albumin/Globulin Ratio 1.0 L 12/30/18 12/30/18 17:48 20:48 WBC RBC Hgb Hct MCV MCH MCHC RDW Plt Count MPV Absolute Neuts (auto) Absolute Lymphs (auto) Absolute Monos (auto) Absolute Eos (auto) Absolute Basos (auto) Neutrophils % Lymphocytes % Monocytes % Eosinophils % Basophils % PT INR PTT (SP) Sodium Potassium Chloride Carbon Dioxide Anion Gap BUN Creatinine BUN/Creatinine Ratio Random Glucose Serum Osmolality Calcium Magnesium Total Bilirubin AST ALT Alkaline Phosphatase Creatine Kinase 41 CK-MB (CK-2) 1.5 CK-MB (CK-2) % Not Reportable Troponin I < 0.02 < 0.02 Serum Total Protein Albumin Globulin Albumin/Globulin Ratio EKG showed NSR with no ST elevations nor T wave inversions. No LBBB. Troponin x two negative. Patient was asymptomatic during her stay. She was given one liter NS over 3 hours. Care instructions given. E.R. warnings given. Questions were elicited and answered. Patient voiced understanding and agreement with the plan. Departure - Departure Clinical Impression: Chest pain Disposition: Discharge to SNF Condition: Good Departure Forms: ED Discharge - Pt. Copy, Patient Portal Self Enrollment Instructions: DI for Chest Pain Diet: resume usual diet Activity: increase activity as tolerated Referrals: Junior Carrasquillo MD [Primary Care Provider] - 1-2 Weeks Home Medications: Ambulatory Orders Aspirin [Aspirin Adult Low Dose] 81 mg PO DAILY 10/20/16 glipiZIDE [Glucotrol] 5 mg PO DAILY 10/20/16 Buspirone HCl 5 mg PO BID 12/12/18 Calcium Carbonate-Vitamin D [Calcium + D3 600-200 mg-Unit] 1 tab PO DAILY 12/12/18 Donepezil HCl [Aricept] 5 mg PO BEDTIME 12/12/18 Fluticasone Propionate (Nasal) [Hm Allergy Relief Nasal S] 50 mcg INH DAILY 12/12/18 Metoprolol Succinate [Metoprolol Succinate ER] 25 mg PO BEDTIME 12/12/18 Ondansetron HCl [Zofran] 4 mg PO PRN PRN 12/12/18 Famotidine [Pepcid Tab] 20 mg PO BID #60 tab 12/13/18 Magnesium Oxide 400 mg PO BID #60 cap 12/13/18 Sucralfate Tab [Carafate Tab] 1 gm PO QID #120 tab 12/13/18 Acetaminophen [Tylenol] 1,000 mg PO PRN 12/30/18 Carboxymethylcellulose Sodium [Retaine Cmc] 0.5 % OP DAILY 12/30/18 Cetirizine HCl [ZyrTEC] 10 mg PO DAILY 12/30/18 Loperamide Cap [Imodium Cap] 2 mg PO PRN 12/30/18 Nitroglycerin 0.4 mg Tab [Nitrostat] 1 ea SL PRN 12/30/18 Phenylephrine W/ Dm-GG [Mucinex Fast-Max Severe C] 20 ml PO PRN 12/30/18 Additional Instructions: Follow up with your regular doctor on Wednesday. Return to the E.R. for worsening symptoms or shortness of breath. Critical Care Note - Critical Care Note Total Time (mins): 100
[2018-12-30] MEDS: ASPIRIN (CHEWABLE) 81 MG TAB PO ONE (17:45)
--- NOTE | 2018-12-30 18:15 | RAD ---
EXAM DESCRIPTION: Chest,1 View CLINICAL HISTORY: 88 years Female chest pain COMPARISON: Portable chest dated 12/12/2018 TECHNIQUE: Portable AP view of the chest is obtained. FINDINGS IN THE CHEST: Heart: Allowing for magnification factors related to AP portable technique and body habitus, the heart is normal in size and configuration. Vasculature: [There is mild [] atherosclerosis in the aortic arch.] There is no evidence of aortic aneurysm or acute findings. The pulmonary vascularity is normal. Mediastinum: Unremarkable otherwise. No evidence of mass or adenopathy. Lungs: There is no focal consolidation in the lungs. Pleura: There are no pleural effusions. There are no pneumothoraces. Osseous structures: No evidence of acute fracture or other significant osseous abnormalities. Degenerative changes are present in the spine and shoulders. There is no fracture of the left eighth posterior lateral rib. Tubes and catheters: None Chest wall: Unremarkable. Visualized Abdomen: Unremarkable. IMPRESSION: No acute findings in the chest. Remainder of findings as described above. Electronically signed by: Gill Connor MD 12/30/2018 6:13 PM CDT
[2018-12-30] MEDS: SODIUM CHLORIDE 0.9% 1000ML 1,000 ML IVS PRN (18:34)
[2018-12-30 19:18] VITALS: BP 193/78
[2018-12-30 22:28] VITALS: TEMP 98; O2SAT 96
== END 2018-12-30 22:20 ==
LOC: ER 17:08
DX: R07.9 Chest pain, unspecified (principal); E11.9 Type 2 diabetes mellitus without complications; F03.90 Unspecified dementia, unspecified severity, without behavioral disturbance, psychotic disturbance, mood disturbance, and anxiety; I10 Essential (primary) hypertension; Z85.6 Personal history of leukemia; Z79.899 Other long term (current) drug therapy; Z79.82 Long term (current) use of aspirin; Z88.2 Allergy status to sulfonamides; Z88.0 Allergy status to penicillin; Z88.8 Allergy status to other drugs, medicaments and biological substances; Z91.040 Latex allergy status

== ENCOUNTER → 2019-02-08 | Outpatient (CLI) | payer MEDICARE | LOC: YCHH 09:16 | PROVIDERS: ATTEND Family Medicine | DX: E11.21 Type 2 diabetes mellitus with diabetic nephropathy (principal); I10 Essential (primary) hypertension ==

== ENCOUNTER 2019-02-09 07:49 | Emergency (ER) | payer MEDICARE ==
[2019-02-09] MEDS ORDERED: SODIUM CHLORIDE 0.9% (FLUSH) 10 ML SYG IV PRN (07:54)
[2019-02-09 08:31] VITALS: TEMP 98.1
--- NOTE | 2019-02-09 08:31 | ED.PDOC ---
History of Present Illness - General Chief Complaint: Head Injury Stated Complaint: Fall - hematoma to L forehead Time Seen by Provider: 02/09/19 07:53 - History of Present Illness Initial Comments: 88F presents to the ED s/p fall. The patient arrives awake, alert but is amnestic for the event. History obtained from EMS and skilled nursing staff. Per report, the patient was found down on her floor this morning. She does not recal l falling. Complains of pain to left forehead. She denies any chest pain, palpitations, shortness of breath, abdominal pain. No vision changes. half-way staff states that she is at her baseline mental status. She is generally unsteady on her feet but this has been worsening over past few days. No other complaints at this time. Allergies/Adverse Reactions: Allergies Bacitracin [From Polysporin] Allergy (Verified 02/09/19 08:38) Latex Allergy (Verified 02/09/19 08:38) Penicillins Allergy (Verified 02/09/19 08:38) Polymyxin B [From Polysporin] Allergy (Verified 02/09/19 08:38) Sulfa Antibiotics Allergy (Verified 02/09/19 08:38) Home Medications: Ambulatory Orders Aspirin [Aspirin Adult Low Dose] 81 mg PO DAILY 10/20/16 glipiZIDE [Glucotrol] 5 mg PO DAILY 10/20/16 Buspirone HCl 5 mg PO BID 12/12/18 Calcium Carbonate-Vitamin D [Calcium + D3 600-200 mg-Unit] 1 tab PO DAILY 12/12/18 Donepezil HCl [Aricept] 5 mg PO BEDTIME 12/12/18 Fluticasone Propionate (Nasal) [Hm Allergy Relief Nasal S] 50 mcg INH DAILY 12/12/18 Metoprolol Succinate [Metoprolol Succinate ER] 25 mg PO BEDTIME 12/12/18 Ondansetron HCl [Zofran] 4 mg PO PRN PRN 12/12/18 Famotidine [Pepcid Tab] 20 mg PO BID #60 tab 12/13/18 Magnesium Oxide 400 mg PO BID #60 cap 12/13/18 Sucralfate Tab [Carafate Tab] 1 gm PO QID #120 tab 12/13/18 Acetaminophen [Tylenol] 1,000 mg PO PRN 12/30/18 Carboxymethylcellulose Sodium [Retaine Cmc] 0.5 % OP DAILY 12/30/18 Cetirizine HCl [ZyrTEC] 10 mg PO DAILY 12/30/18 Loperamide Cap [Imodium Cap] 2 mg PO PRN 12/30/18 Nitroglycerin 0.4 mg Tab [Nitrostat] 1 ea SL PRN 12/30/18 Phenylephrine W/ Dm-GG [Mucinex Fast-Max Severe C] 20 ml PO PRN 12/30/18 Review of Systems - Review of Systems EENTM: Denies: nose pain Respiratory: Denies: cough, short of breath Cardiology: Denies: chest pain, palpitations Gastrointestinal/Abdominal: Denies: abdominal pain, nausea, vomiting Genitourinary: Denies: dysuria Musculoskeletal: States: neck pain. Denies: joint pain, joint swelling Skin: Denies: change in color, lesions, rash Neurological: States: headache. Denies: numbness, paresthesia, weakness Unable to Obtain Due To: dementia - ROS limited due to history of dementia Past Medical History (General) - Patient Medical History Hx Seizures: No Hx Stroke: No Hx Dementia: Yes Hx Asthma: No Hx of COPD: No Hx Cardiac Disorders: No Hx Congestive Heart Failure: No Hx Pacemaker: No Hx Hypertension: Yes Hx Diabetes: Yes Hx Cancer: Yes - Leukemia - Vaccination History Hx Influenza Vaccination: No Hx Pneumococcal Vaccination: No - Social History Hx Tobacco Use: No Hx Alcohol Use: No Family Medical History - Family History Mother Family History: No Known Living Status: Hx Family Cancer: Yes - colon-mom Hx Family;Other: dad-amyloidosis,copd Physical Exam - Physical Exam General Appearance: Alert, Anxious Head Injury: swelling - 5cm left eyebrow, other - abrasion to left eyebrow Eye Exam: bilateral normal - EOMI, no icterus ENT Exam: no evidence of ENT injury Neck Exam: stiff neck, tenderness - mild, other - c-collar placed prior to arrival Cardiovascular/Respiratory: regular rate, rhythm, no M/R/G Gastrointestinal/Abdominal: non tender, soft Extremity: normal range of motion, non-tender, normal inspection, normal capillary refill, pelvis stable 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 She reports that the patient had several falls previously which is why they relocated her to current facility where she has not fallen in 3 years. The patient does not recall cause of fall. Imaging reviewd, CT head and cervical spine do not show any acute traumatic abno rmality aside from hematoma. C-collar cleared. Patient's daughter states she is at mental status baseline. Labs reviewed, unable to provide urine sample but daughter states PCP did UA yesterday with no abnormal results. Discussed home management and wound care. - Results/Orders Results/Orders: 02/09/19 07:54 Laboratory Results - last 24 hr 02/09/19 02/09/19 02/09/19 08:17 08:17 08:17 WBC 8.4 RBC 3.84 L Hgb 11.4 L Hct 34.6 L MCV 90.1 MCH 29.8 MCHC 33.0 RDW 12.5 Plt Count 214 MPV 8.5 Absolute Neuts (auto) 6.80 Absolute Lymphs (auto) 0.80 L Absolute Monos (auto) 0.50 Absolute Eos (auto) 0.20 Absolute Basos (auto) 0.10 Neutrophils % 81.0 H Lymphocytes % 9.8 L Monocytes % 5.6 Eosinophils % 3.0 Basophils % 0.6 PT 9.6 INR 0.96 PTT (SP) 22.5 Sodium 136 Potassium 4.3 Chloride 99 L Carbon Dioxide 26 Anion Gap 15.3 BUN 27 H Creatinine 0.96 BUN/Creatinine Ratio 28.1 H Random Glucose 294 H Serum Osmolality 287.9 Calcium 9.3 Total Bilirubin 0.6 AST 14 ALT 13 Alkaline Phosphatase 59 Serum Total Protein 6.9 Albumin 3.7 Globulin 3.2 Albumin/Globulin Ratio 1.2 MDM Patient presents to the ED s/p unwitnessed fall from assisted living facility. There is left side hematoma without evidence for orbital injury or acute intracranial abnormality. There are no focal neurologic deficits and she is at her mental baseline. Workup otherwise as above. She was unable to provide urine in the ED but daughter reports negative urinalysis yesterday and there are no other signs of infectious process. Will continue outpatient symptomatic management, wound care. She will follow up with PCP. Home care instructions and return indications reviewed. Departure - Departure Clinical Impression: Hematoma Closed head injury Qualifiers: Encounter type: initial encounter Qualified Code(s): S09.90XA - Unspecified injury of head, initial encounter Time of Disposition: 09:35 Disposition: Discharge to Asst Living Condition: Good Departure Forms: ED Discharge - Pt. Copy, Patient Portal Self Enrollment Instructions: DI for Concussion, DI for Closed Head Injury Diet: resume usual diet Referrals: Junior Carrasquillo MD [Primary Care Provider] - 1-2 Weeks Home Medications: Ambulatory Orders Aspirin [Aspirin Adult Low Dose] 81 mg PO DAILY 10/20/16 glipiZIDE [Glucotrol] 5 mg PO DAILY 10/20/16 Buspirone HCl 5 mg PO BID 12/12/18 Calcium Carbonate-Vitamin D [Calcium + D3 600-200 mg-Unit] 1 tab PO DAILY 12/12/18 Donepezil HCl [Aricept] 5 mg PO BEDTIME 12/12/18 Fluticasone Propionate (Nasal) [Hm Allergy Relief Nasal S] 50 mcg INH DAILY 12/12/18 Metoprolol Succinate [Metoprolol Succinate ER] 25 mg PO BEDTIME 12/12/18 Ondansetron HCl [Zofran] 4 mg PO PRN PRN 12/12/18 Famotidine [Pepcid Tab] 20 mg PO BID #60 tab 12/13/18 Magnesium Oxide 400 mg PO BID #60 cap 12/13/18 Sucralfate Tab [Carafate Tab] 1 gm PO QID #120 tab 12/13/18 Acetaminophen [Tylenol] 1,000 mg PO PRN 12/30/18 Carboxymethylcellulose Sodium [Retaine Cmc] 0.5 % OP DAILY 12/30/18 Cetirizine HCl [ZyrTEC] 10 mg PO DAILY 12/30/18 Loperamide Cap [Imodium Cap] 2 mg PO PRN 12/30/18 Nitroglycerin 0.4 mg Tab [Nitrostat] 1 ea SL PRN 12/30/18 Phenylephrine W/ Dm-GG [Mucinex Fast-Max Severe C] 20 ml PO PRN 12/30/18 Comments: Steven Verde MD Emergency Medicine Physician Number [id number]
--- NOTE | 2019-02-09 08:43 | RAD ---
EXAM DESCRIPTION: Chest,1 View: CR/DR/XR. CLINICAL HISTORY: 88 years Female trauma, fall, chest pain COMPARISON: None. TECHNIQUE: ONE VIEW PORTABLE. AP 814 hours, upright position. FINDINGS: Lungs are well-inflated with no infiltrate. No pleural effusion or pneumothorax. Cardiopulmonary vascular structures and mediastinal silhouette are negative. Monitoring leads on the chest. Arthrosis in the shoulders and previous left posterior rib fracture. IMPRESSION: No radiographic evidence of acute cardiopulmonary disease. Electronically signed by: Jung Villegas MD 02/09/2019 8:41 AM CDT
--- NOTE | 2019-02-09 08:54 | CT ---
EXAM DESCRIPTION: Head: Computed Tomography. CLINICAL HISTORY: fall, closed head injury. Previous CVA left occipital lobe COMPARISON: MRI scan of the brain 05/11/2018. CT scan of the cervical spine and portable chest x-ray on this visit. TECHNIQUE: Non-helical axial scans through the skull and brain, at 2.5 x 20 mm intervals, non-contrast. Coronal and sagittal 2.0 mm reconstructions. Total Exam DLP: 859.97 mGy-cm. This exam was performed according to our departmental dose-optimization program which includes automated exposure control, adjustment of the mA and/or kV according to patient size and/or use of iterative reconstruction technique; to reduce radiation dose to as low as reasonably achievable (ALARA). FINDINGS: No hemorrhage, no mass-effect, and no midline shift. Decreased castaneda-white matter differentiation with multiple bilateral confluent regions of decreased periventricular white matter density extending into the bilateral centrum semiovale and involving the frontal parietal and occipital lobes mostly frontal and parietal. No extra-axial hemorrhage. Low-density in the posterior inferior parasagittal left occipital lobe corresponding to region of prior CVA on MRI scan. No abnormal radiodense material in the brain parenchyma. Vascular calcifications anterior and posterior; physiologic calcifications in the pineal gland and choroid plexus. No effacement or displacement of the ventricles, CSF spaces, or subdural spaces. No extra axial fluid collection or hemorrhage. No gross abnormalities of the bony calvarium. Decreased bone density. Dense soft tissue mass in the scalp overlying the left frontal bone. No air-fluid level or fluid in the frontal sinuses. Decompressed with thickening in the bilateral ethmoid air cells and also antrum. No air-fluid levels. Mastoid sinuses are well aerated. IMPRESSION: 1. No hemorrhage, no mass effect, no midline shift. Periventricular white matter disease, also seen in the centrum semiovale and subcortical white matter diffusely. Also seen on prior MRI scan. 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 2. Hematoma in the left frontal scalp overlying the left frontal bone with no fluid in the frontal sinus. Chronic paranasal sinusitis. 3. CT scans are insensitive for detecting small CVAs in the first 24 hours after onset. Evaluation of the brain stem is also limited. If symptoms persist, consider NON-EMERGENT MRI scan of the brain with diffusion imaging. Electronically signed by: Jung Villegas MD 02/09/2019 8:53 AM CDT
--- NOTE | 2019-02-09 09:14 | CT ---
EXAM DESCRIPTION: Cervical Spine: Computed Tomography. CLINICAL HISTORY: 88 years Female fall, neck pain. Patient fell on forehead with left frontal scalp hematoma. COMPARISON: CT scan head on the same visit and portable chest. TECHNIQUE: Spiral, axial 2.5 x 2.5 scans through the cervical spine without contrast. Coronal and sagittal 2.0 mm Reconstructions. Total Exam DLP: 140.96 mGy-cm. This exam was performed according to our departmental dose-optimization program which includes automated exposure control, adjustment of the mA and/or kV according to patient size and/or use of iterative reconstruction technique; to reduce radiation dose to as low as reasonably achievable (ALARA). FINDINGS: The head is rotated to the right on the cervical spine but atlantooccipital joints are intact. Minimal arthrosis on the right. No fracture. Arthrosis in the atlantoaxial joint with small bone densities. C1-C2 facets are negative. Facet arthrosis at multiple levels. Narrowing of disc spaces at multiple levels with trace anterolisthesis and spondylosis at C6-C7. Trace anterolisthesis of C4-C5. No seth vertebral body displacement. No compression type vertebral body fractures. Posterior elements and transverse elements are intact without fracture. No disc herniation or canal stenosis. Multiple levels of foraminal narrowing. No foraminal stenosis. IMPRESSION: 1. No cervical spine fracture, no displacement or subluxation, no perched or locked facets. 2. Atlantoaxial arthrosis. Spondylosis at C6-C7. Trace anterolisthesis at C4-C5 and C6-C7. Unilateral or bilateral facet arthrosis at multiple levels. Canal narrowing and neural foraminal narrowing at multiple levels. No stenosis. Electronically signed by: Jung Villegas MD 02/09/2019 9:12 AM CDT
[2019-02-09 10:42] VITALS: BP 177/70; O2SAT 97
== END 2019-02-09 10:25 ==
LOC: ER 07:49
DX: S00.83XA Contusion of other part of head, initial encounter (principal); S09.90XA Unspecified injury of head, initial encounter; F03.90 Unspecified dementia, unspecified severity, without behavioral disturbance, psychotic disturbance, mood disturbance, and anxiety; M47.812 Spondylosis without myelopathy or radiculopathy, cervical region; I10 Essential (primary) hypertension; E11.9 Type 2 diabetes mellitus without complications; Z85.6 Personal history of leukemia; Z79.899 Other long term (current) drug therapy; Z79.82 Long term (current) use of aspirin; Z88.8 Allergy status to other drugs, medicaments and biological substances; Z91.040 Latex allergy status; Z88.0 Allergy status to penicillin; Z88.2 Allergy status to sulfonamides; W19.XXXA Unspecified fall, initial encounter; Y92.129 Unspecified place in nursing home as the place of occurrence of the external cause

== ENCOUNTER → 2019-02-24 | Outpatient (CLI) | payer MEDICARE | LOC: YCHH 09:16 | PROVIDERS: ATTEND Family Medicine | DX: E11.21 Type 2 diabetes mellitus with diabetic nephropathy (principal) ==

== ENCOUNTER → 2019-03-20 | Outpatient (CLI) | payer MEDICARE | LOC: YCHH 08:48 | PROVIDERS: ATTEND Family Medicine | DX: E11.21 Type 2 diabetes mellitus with diabetic nephropathy (principal); D64.9 Anemia, unspecified; E78.5 Hyperlipidemia, unspecified ==

== ENCOUNTER 2019-06-08 11:21 | Emergency (ER) | payer MEDICARE ==
[2019-06-08 11:41] VITALS: TEMP 100.1
--- NOTE | 2019-06-08 12:18 | ED.PDOC ---
History of Present Illness - General Chief Complaint: General Stated Complaint: fell at [facility] but has elevated BS Time Seen by Provider: 06/08/19 11:23 Source: patient, RN notes reviewed, Vital Signs reviewed, EMS notes reviewed, family - History of Present Illness Initial Comments: Patient presents with family for evaluation of ground level fall and hyperglycemia. Patient has had a worsening cough over the past few days. She has also had episodes of diarrhea today. Daughter found patient on the floor in the bathroom with stool around her. The patient is unable to recall events leading to fall. She has has right hip pain at this time. She has no recent sick contacts, fevers, Allergies/Adverse Reactions: Allergies Bacitracin [From Polysporin] Allergy (Verified 06/08/19 11:41) Latex Allergy (Verified 06/08/19 11:41) Penicillins Allergy (Verified 06/08/19 11:41) Polymyxin B [From Polysporin] Allergy (Verified 06/08/19 11:41) Sulfa Antibiotics Allergy (Verified 06/08/19 11:41) Home Medications: Ambulatory Orders Aspirin [Aspirin Adult Low Dose] 81 mg PO DAILY 10/20/16 glipiZIDE [Glucotrol] 5 mg PO DAILY 10/20/16 Calcium Carbonate-Vitamin D [Calcium + D3 600-200 mg-Unit] 1 tab PO DAILY 12/12/18 Donepezil HCl [Aricept] 5 mg PO BEDTIME 12/12/18 Fluticasone Propionate (Nasal) [Hm Allergy Relief Nasal S] 50 mcg INH DAILY 12/12/18 Metoprolol Succinate [Metoprolol Succinate ER] 25 mg PO BEDTIME 12/12/18 Ondansetron HCl [Zofran] 4 mg PO PRN PRN 12/12/18 RX: Buspirone HCl [Buspirone Hydrochloride] 5 mg PO BID 12/12/18 Famotidine [Pepcid Tab] 20 mg PO BID #60 tab 12/13/18 RX: Magnesium Oxide 400 mg PO BID #60 cap 12/13/18 Sucralfate Tab [Carafate Tab] 1 gm PO QID #120 tab 12/13/18 Acetaminophen [Tylenol] 1,000 mg PO PRN 12/30/18 Carboxymethylcellulose Sodium [Retaine Cmc] 0.5 % OP DAILY 12/30/18 Cetirizine HCl [ZyrTEC] 10 mg PO DAILY 12/30/18 Loperamide Cap [Imodium Cap] 2 mg PO PRN 12/30/18 Nitroglycerin 0.4 mg Tab [Nitrostat] 1 ea SL PRN 12/30/18 Phenylephrine W/ Dm-GG [Mucinex Fast-Max Severe C] 20 ml PO PRN 12/30/18 Review of Systems - Review of Systems Unable to Obtain Due To: dementia Past Medical History (General) - Patient Medical History Hx Seizures: No Hx Stroke: No Hx Dementia: Yes Hx Asthma: No Hx of COPD: No Hx Cardiac Disorders: No Hx Congestive Heart Failure: No Hx Pacemaker: No Hx Hypertension: Yes Hx Thyroid Disease: No Hx Diabetes: Yes Hx Gastroesophageal Reflux: Yes Hx Renal Disease: No Hx Cancer: Yes - LEUKEMIA Hx of HIV: No Hx Hepatitis C: No Hx MRSA: No Surgical History: Hysterectomy - Vaccination History Hx Tetanus, Diphtheria Vaccination: No Hx Influenza Vaccination: Yes Hx Pneumococcal Vaccination: Yes - Social History Hx Tobacco Use: No Hx Alcohol Use: No Hx Substance Use: No Hx Substance Use Treatment: No Hx Depression: No - Activities of Daily Living [facility]isted [facility] (if applicable):: [facility] - Female History Patient is a Female of Child Bearing Age (10 -59 yrs old): No Family Medical History - Family History Mother Family History: No Known Living Status: Hx Family Cancer: Yes - colon-mom Hx Family;Other: dad-amyloidosis,copd Physical Exam - Physical Exam General Appearance: Alert, Other - Appears uncomfortable Eye Exam: bilateral normal Ears, Nose, Throat: nasal congestion Neck: full range of motion, supple, normal inspection, other - No midline c- spine tenderness Respiratory: lungs clear, normal breath sounds, no respiratory distress Cardiovascular/Chest: normal peripheral pulses, regular rate, rhythm, no edema, no gallop Gastrointestinal/Abdominal: non tender, soft Back Exam: other - No midline spinal tenderness Extremity: other - No TTP in extremities except right hip Progress - Progress Progress: 06/08/19 16:56 Patient presented for evaluation of ground level fall and hyperglycemia. CT head was not significant for acute intracranial hemorrhage. There was no midline spinal tenderness. CXR was not significant for pneumonia. XR right hip was not significant for acute fx or dislocation. CT Cervical spine was not significant for acute fx or dislocation. Influenza screen was negative. CBC was not significant for leukocytosis or anemia. CMP was significant for signs of dehydration and hyperglycemia without signs of DKA. Patient's blood sugar improved after IV fluid hydration. Patient was at neurologic baseline. Symptoms are likely from viral URI and viral gastroenteritis. Plan will be for discharge home with plans for outpatient follow-up. - Results/Orders Results/Orders: Laboratory Results WBC 7.8 K/mm3 (4.8-10.8) 06/08/19 11:30 RBC 4.03 M/mm3 (4.20-5.40) L 06/08/19 11:30 Hgb 11.0 gm/dL (12.0-16.0) L 06/08/19 11:30 Hct 34.1 % (36.0-47.0) L 06/08/19 11:30 MCV 84.7 fl (81.0-99.0) 06/08/19 11:30 MCH 27.3 pg (27.0-31.0) 06/08/19 11:30 MCHC 32.2 g/dL (33.0-37.0) L 06/08/19 11:30 RDW 15.1 % (11.5-14.5) H 06/08/19 11:30 Plt Count 172 K/mm3 (130-400) 06/08/19 11:30 MPV 8.7 fl (7.40-10.4) 06/08/19 11:30 Absolute Neuts (auto) 7.50 K/uL (1.8-6.8) H 06/08/19 11:30 Absolute Lymphs (auto) 0.10 K/uL (1.0-3.4) L 06/08/19 11:30 Absolute Monos (auto) 0.20 K/uL (0.2-0.8) 06/08/19 11:30 Absolute Eos (auto) 0.00 K/uL (0.0-0.4) 06/08/19 11:30 Absolute Basos (auto) 0.00 K/uL (0.0-0.1) 06/08/19 11:30 Neutrophils % 95.8 % (42.0-78.0) H 06/08/19 11:30 Lymphocytes % 1.1 % (20.0-50.0) L 06/08/19 11:30 Monocytes % 2.7 % (2.0-9.0) 06/08/19 11:30 Eosinophils % 0.3 % (1.0-5.0) L 06/08/19 11:30 Basophils % 0.1 % (0.0-2.0) 06/08/19 11:30 Sodium 133 mmol/L (135-145) L 06/08/19 11:30 Potassium 4.9 mmol/L (3.6-5.0) 06/08/19 11:30 Chloride 95 mmol/L (101-111) L 06/08/19 11:30 Carbon Dioxide 25 mmol/L (21-31) 06/08/19 11:30 Anion Gap 17.9 (12-18) 06/08/19 11:30 BUN 33 mg/dL (7-18) H 06/08/19 11:30 Creatinine 1.40 mg/dL (0.6-1.3) H 06/08/19 11:30 BUN/Creatinine Ratio 23.6 (10-20) H 06/08/19 11:30 POC Glucose 353 mg/dL (70-105) H 06/08/19 13:35 Random Glucose 433 mg/dL (70-105) H* 06/08/19 11:30 Serum Osmolality 292.0 mOsm/L (275-295) 06/08/19 11:30 Calcium 8.9 mg/dL (8.4-10.2) 06/08/19 11:30 Total Bilirubin 0.6 mg/dL (0.2-1.0) 06/08/19 11:30 AST 18 IU/L (10-42) 06/08/19 11:30 ALT 13 IU/L (10-60) 06/08/19 11:30 Alkaline Phosphatase 55 IU/L (42-121) 06/08/19 11:30 Serum Total Protein 6.8 gm/dL (6.4-8.2) 06/08/19 11:30 Albumin 3.7 g/dl (3.2-5.5) 06/08/19 11:30 Globulin 3.1 gm/dL (2.3-3.5) 06/08/19 11:30 Albumin/Globulin Ratio 1.2 (1.1-1.9) 06/08/19 11:30 Reporting MD: Roldan Tierney Customer Supply Chain Analyst date: Dictation date: Study: CT cervical spine. Indication: Fall injury Technique: Axial CT images were acquired through the cervical spine without intravenous contrast. Coronal and sagittal reformats performed. This exam was performed according to our departmental dose-optimization program, which includes automated exposure control, adjustment of the mA and/or kV according to patient size and/or use of iterative reconstruction technique. Comparison: None. Findings: Vertebral body height maintained without acute fracture. Pronounced multilevel degenerative changes cervical spine noted and most pronounced at C5-C6 and C6-C7 with at least mild spinal canal narrowing at both levels. Varying degrees of bilateral foraminal narrowing throughout the cervical spine. Pronounced atherosclerosis. Impression: No acute cervical fracture. Additional findings as above. Electronically signed by: Roldan Tierney MD 06/08/2019 12:30 PM PAPER MILL SUPERVISOR Reporting MD: Roldan Tierney Customer Supply Chain Analyst date: Dictation date: Study: CT of the Head. Indication: Fall injury Technique: Axial CT images of the head were acquired without intravenous contrast. This exam was performed according to our departmental dose-optimization program, which includes automated exposure control, adjustment of the mA and/or kV according to patient size and/or use of iterative reconstruction technique. Comparison: None. Findings: No acute ischemia, acute hemorrhage, mass, mass effect, midline shift, or extra-axial fluid collection identified by CT. Ventricles are normal in configuration without hydrocephalus. Patchy hypoattenuation of the periventricular and subcortical white matter noted. This is nonspecific but most consistent with chronic microvascular ischemic change. Global parenchymal volume loss and intracranial atherosclerosis noted as well. Paranasal sinuses are adequately aerated. Mastoid air cells are adequately aerated. Mild left frontal soft tissue swelling without underlying fracture. Impression: No acute intracranial abnormality by CT. Senescent changes. Mild left frontal soft tissue swelling without underlying fracture. Electronically signed by: Roldan Tierney MD 06/08/2019 12:28 PM PAPER MILL SUPERVISOR Reporting MD: Roldan Tierney Customer Supply Chain Analyst date: Dictation date: Study: Frontal and Lateral Radiographs of the Chest. Indication: Cough. Assess for pneumonia Comparison: February 09, 2019 Impression: Heart size normal. Atherosclerosis aorta. Patchy left basilar atelectasis, otherwise lungs clear. Degenerative changes of the spine noted. Osteopenia. If this is a new finding, DEXA scan recommended as well as evaluation for possible osteoporosis treatment. Electronically signed by: Roldan Tierney MD 06/08/2019 12:31 PM PAPER MILL SUPERVISOR XR Right Hip: NAD Departure - Departure Clinical Impression: Hyperglycemia, Viral URI with cough, URI (upper respiratory infection) Diarrhea Qualifiers: Diarrhea type: unspecified type Qualified Code(s): R19.7 - Diarrhea, unspecified Time of Disposition: 14:56 Disposition: Discharge to Home or Self Care Condition: Fair Departure Forms: ED Discharge - Pt. Copy, Patient Portal Self Enrollment Diet: bland diet Referrals: Junior Carrasquillo MD [Primary Care Provider] - 1-2 Weeks Home Medications: Ambulatory Orders Aspirin [Aspirin Adult Low Dose] 81 mg PO DAILY 10/20/16 glipiZIDE [Glucotrol] 5 mg PO DAILY 10/20/16 Calcium Carbonate-Vitamin D [Calcium + D3 600-200 mg-Unit] 1 tab PO DAILY 12/12/18 Donepezil HCl [Aricept] 5 mg PO BEDTIME 12/12/18 Fluticasone Propionate (Nasal) [Hm Allergy Relief Nasal S] 50 mcg INH DAILY 12/12/18 Metoprolol Succinate [Metoprolol Succinate ER] 25 mg PO BEDTIME 12/12/18 Ondansetron HCl [Zofran] 4 mg PO PRN PRN 12/12/18 RX: Buspirone HCl [Buspirone Hydrochloride] 5 mg PO BID 12/12/18 Famotidine [Pepcid Tab] 20 mg PO BID #60 tab 12/13/18 RX: Magnesium Oxide 400 mg PO BID #60 cap 12/13/18 Sucralfate Tab [Carafate Tab] 1 gm PO QID #120 tab 12/13/18 Acetaminophen [Tylenol] 1,000 mg PO PRN 12/30/18 Carboxymethylcellulose Sodium [Retaine Cmc] 0.5 % OP DAILY 12/30/18 Cetirizine HCl [ZyrTEC] 10 mg PO DAILY 12/30/18 Loperamide Cap [Imodium Cap] 2 mg PO PRN 12/30/18 Nitroglycerin 0.4 mg Tab [Nitrostat] 1 ea SL PRN 12/30/18 Phenylephrine W/ Dm-GG [Mucinex Fast-Max Severe C] 20 ml PO PRN 12/30/18 Comments: Foster Wilson D.O. Cathie #[id number]
--- NOTE | 2019-06-08 12:29 | CT ---
Study: CT of the Head. Indication: Fall injury Technique: Axial CT images of the head were acquired without intravenous contrast. This exam was performed according to our departmental dose-optimization program, which includes automated exposure control, adjustment of the mA and/or kV according to patient size and/or use of iterative reconstruction technique. Comparison: None. Findings: No acute ischemia, acute hemorrhage, mass, mass effect, midline shift, or extra-axial fluid collection identified by CT. Ventricles are normal in configuration without hydrocephalus. Patchy hypoattenuation of the periventricular and subcortical white matter noted. This is nonspecific but most consistent with chronic microvascular ischemic change. Global parenchymal volume loss and intracranial atherosclerosis noted as well. Paranasal sinuses are adequately aerated. Mastoid air cells are adequately aerated. Mild left frontal soft tissue swelling without underlying fracture. Impression: No acute intracranial abnormality by CT. Senescent changes. Mild left frontal soft tissue swelling without underlying fracture. Electronically signed by: Roldan Tierney MD 06/08/2019 12:28 PM [employer]
--- NOTE | 2019-06-08 12:32 | CT ---
Study: CT cervical spine. Indication: Fall injury Technique: Axial CT images were acquired through the cervical spine without intravenous contrast. Coronal and sagittal reformats performed. This exam was performed according to our departmental dose-optimization program, which includes automated exposure control, adjustment of the mA and/or kV according to patient size and/or use of iterative reconstruction technique. Comparison: None. Findings: Vertebral body height maintained without acute fracture. Pronounced multilevel degenerative changes cervical spine noted and most pronounced at C5-C6 and C6-C7 with at least mild spinal canal narrowing at both levels. Varying degrees of bilateral foraminal narrowing throughout the cervical spine. Pronounced atherosclerosis. Impression: No acute cervical fracture. Additional findings as above. Electronically signed by: Roldan Tierney MD 06/08/2019 12:30 PM SCALE TESTER
--- NOTE | 2019-06-08 12:33 | RAD ---
Study: Frontal and Lateral Radiographs of the Chest. Indication: Cough. Assess for pneumonia Comparison: February 09, 2019 Impression: Heart size normal. Atherosclerosis aorta. Patchy left basilar atelectasis, otherwise lungs clear. Degenerative changes of the spine noted. Osteopenia. If this is a new finding, DEXA scan recommended as well as evaluation for possible osteoporosis treatment. Electronically signed by: Roldan Tierney MD 06/08/2019 12:31 PM [facility]
--- NOTE | 2019-06-08 12:33 | RAD ---
2 radiographs of the pelvis and hips Indication: Cough. Assess for pneumonia Comparison: None. Impression: No acute fracture defined. Evaluation for fracture is limited given the degree of osteopenia. If high clinical concern for acute fracture, correlation with MRI recommended given its greater sensitivity in the osteopenic patient. If the patient cannot tolerate MRI imaging or more urgent imaging is required, CT could be performed, however it is less sensitive in the osteopenic patient when compared to MRI. 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 Osteopenia. If this is a new finding, DEXA scan recommended as well as evaluation for possible osteoporosis treatment. Electronically signed by: Roldan Tierney MD 06/08/2019 12:32 PM [facility]
[2019-06-08 15:24] VITALS: BP 134/72; O2SAT 96
== END 2019-06-08 15:24 | disposition home or self-care (01) ==
LOC: ER 11:21
DX: J06.9 Acute upper respiratory infection, unspecified (principal); R19.7 Diarrhea, unspecified; E11.65 Type 2 diabetes mellitus with hyperglycemia; M25.551 Pain in right hip; M47.812 Spondylosis without myelopathy or radiculopathy, cervical region; M85.80 Other specified disorders of bone density and structure, unspecified site; M16.0 Bilateral primary osteoarthritis of hip; F03.90 Unspecified dementia, unspecified severity, without behavioral disturbance, psychotic disturbance, mood disturbance, and anxiety; I10 Essential (primary) hypertension; K21.9 Gastro-esophageal reflux disease without esophagitis; Z85.6 Personal history of leukemia; Z79.899 Other long term (current) drug therapy; Z79.82 Long term (current) use of aspirin; Z88.8 Allergy status to other drugs, medicaments and biological substances; Z91.040 Latex allergy status; Z88.0 Allergy status to penicillin; Z88.2 Allergy status to sulfonamides

== ENCOUNTER → 2019-07-14 | Outpatient (CLI) | payer MEDICARE | LOC: YCHH 09:19 | PROVIDERS: ATTEND Family Medicine | DX: R30.0 Dysuria (principal) ==

== ENCOUNTER 2019-09-01 04:18 | Emergency (ER) | payer MEDICARE ==
--- NOTE | 2019-09-01 04:36 | ED.PDOC ---
History of Present Illness - General Chief Complaint: Trauma Stated Complaint: fall Time Seen by Provider: 09/01/19 04:33 Source: patient, EMS notes reviewed, EMS Exam Limitations: no limitations Additional Information: this is an 88 year old [facility] residen, that lives at a memory unit. patient presents because she had a fall, unwitnessed at [facility] when EMS arrived at the scene patient was wrapped with blankets patient has no complainta and denies any pain patient has a past medical history of Leukemia, diabetes, hypertension - History of Present Illness Improving Factors: nothing Worsening Factors: nothing Associated Symptoms: denies symptoms Allergies/Adverse Reactions: Allergies Bacitracin [From Polysporin] Allergy (Verified 06/08/19 11:41) Latex Allergy (Verified 06/08/19 11:41) Penicillins Allergy (Verified 06/08/19 11:41) Polymyxin B [From Polysporin] Allergy (Verified 06/08/19 11:41) Sulfa Antibiotics Allergy (Verified 06/08/19 11:41) Home Medications: Ambulatory Orders Aspirin [Aspirin Adult Low Dose] 81 mg PO DAILY 10/20/16 glipiZIDE [Glucotrol] 5 mg PO DAILY 10/20/16 Buspirone HCl [Buspirone Hydrochloride] 5 mg PO BID 12/12/18 Donepezil HCl [Aricept] 5 mg PO BEDTIME 12/12/18 Fluticasone Propionate (Nasal) [Hm Allergy Relief Nasal S] 50 mcg INH DAILY 12/12/18 Metoprolol Succinate [Metoprolol Succinate ER] 25 mg PO BEDTIME 12/12/18 Famotidine [Pepcid Tab] 20 mg PO BID #60 tab 12/13/18 Magnesium Oxide 400 mg PO BID #60 cap 12/13/18 Acetaminophen [Tylenol] 1,000 mg PO PRN 12/30/18 Carboxymethylcellulose Sodium [Retaine Cmc] 0.5 % OP DAILY 12/30/18 Loperamide Cap [Imodium Cap] 2 mg PO PRN 12/30/18 Nitroglycerin 0.4 mg Tab [Nitrostat] 1 ea SL PRN 12/30/18 Phenylephrine W/ Dm-GG [Mucinex Fast-Max Severe C] 20 ml PO PRN 12/30/18 Review of Systems - Review of Systems Constitutional: States: no symptoms reported EENTM: States: no symptoms reported Respiratory: States: no symptoms reported Cardiology: States: no symptoms reported Gastrointestinal/Abdominal: States: no symptoms reported Genitourinary: States: no symptoms reported Musculoskeletal: States: no symptoms reported Skin: States: no symptoms reported Neurological: States: no symptoms reported Endocrine: States: no symptoms reported Hematologic/Lymphatic: States: no symptoms reported Past Medical History (General) - Patient Medical History Hx Seizures: No Hx Stroke: No Hx Dementia: Yes Hx Asthma: No Hx of COPD: No Hx Cardiac Disorders: No Hx Congestive Heart Failure: No Hx Pacemaker: No Hx Hypertension: Yes Hx Thyroid Disease: No Hx Diabetes: Yes Hx Gastroesophageal Reflux: Yes Hx Renal Disease: No Hx Cancer: Yes - LEUKEMIA Hx of HIV: No Hx Hepatitis C: No Hx MRSA: No - Vaccination History Hx Tetanus, Diphtheria Vaccination: No Hx Influenza Vaccination: Yes Hx Pneumococcal Vaccination: Yes - Social History Hx Tobacco Use: No Hx Alcohol Use: No Hx Substance Use: No Hx Substance Use Treatment: No Hx Depression: No Family Medical History - Family History Mother Family History: No Known Living Status: Hx Family Cancer: Yes - colon-mom Hx Family;Other: dad-amyloidosis,copd Physical Exam - Physical Exam General Appearance: Alert, Well Developed, Well Groomed, Well Hydrated Eye Exam: bilateral normal Neck: non-tender, full range of motion, supple, normal inspection Respiratory: chest non-tender, lungs clear, normal breath sounds, no respiratory distress, no accessory muscle use Cardiovascular/Chest: normal peripheral pulses, regular rate, rhythm, no edema, no gallop, no JVD, no murmur Peripheral Pulses: radial,right: 2+ Gastrointestinal/Abdominal: normal bowel sounds, non tender, soft, no organomegaly, no pulsatile mass Back Exam: normal inspection, no CVA tenderness, no vertebral tenderness Neurologic: remote advisor II-XII nml as tested, no motor/sensory deficits, alert, normal mood/affect, oriented x 3 Skin Exam: normal color Lymphatic: no adenopathy Progress - Progress Progress: 09/01/19 05:32 this patient had an unwitnessed fall at [facility], initially patient had no complaint but soon after started complaining of pelvic pain patient is inher usual neurological baseline patient head ct was negative for epidural, subdural or intracranial hemorraghe pelvic x rays was negative for fractures or dislocations Departure - Departure Clinical Impression: Fall Qualifiers: Encounter type: initial encounter Qualified Code(s): W19.XXXA - Unspecified f all, initial encounter Concussion Qualifiers: Encounter type: initial encounter Loss of consciousness presence/duration: wi thout LOC Qualified Code(s): S06.0X0A - Concussion without loss of consciousness, initial encounter Disposition: Discharge to Home or Self Care Condition: Fair Departure Forms: ED Discharge - Pt. Copy, Patient Portal Self Enrollment Instructions: DI for Trauma, Concussion in Adults, Preventing Falls Referrals: Junior Carrasquillo MD [Primary Care Provider] - 1-2 Weeks Home Medications: Ambulatory Orders Aspirin [Aspirin Adult Low Dose] 81 mg PO DAILY 10/20/16 glipiZIDE [Glucotrol] 5 mg PO DAILY 10/20/16 Buspirone HCl [Buspirone Hydrochloride] 5 mg PO BID 12/12/18 Donepezil HCl [Aricept] 5 mg PO BEDTIME 12/12/18 Fluticasone Propionate (Nasal) [Hm Allergy Relief Nasal S] 50 mcg INH DAILY 12/12/18 Metoprolol Succinate [Metoprolol Succinate ER] 25 mg PO BEDTIME 12/12/18 Famotidine [Pepcid Tab] 20 mg PO BID #60 tab 12/13/18 Magnesium Oxide 400 mg PO BID #60 cap 12/13/18 Acetaminophen [Tylenol] 1,000 mg PO PRN 12/30/18 Carboxymethylcellulose Sodium [Retaine Cmc] 0.5 % OP DAILY 12/30/18 Loperamide Cap [Imodium Cap] 2 mg PO PRN 12/30/18 Nitroglycerin 0.4 mg Tab [Nitrostat] 1 ea SL PRN 12/30/18 Phenylephrine W/ Dm-GG [Mucinex Fast-Max Severe C] 20 ml PO PRN 12/30/18 Additional Instructions: RETURN TO THE ER IF NAUSEA, HEADACHE, VOMITING, ALTERED MENTAL STATUS OR ANY OTHER CONCERN
[2019-09-01 04:42] VITALS: TEMP 97.6; O2SAT 95
--- NOTE | 2019-09-01 05:27 | RAD ---
EXAM: Two view(s) of the pelvis. INDICATION: Pain. COMPARISON: None. FINDINGS: No acute fracture or dislocation. Bones are demineralized. Multilevel lumbar spondylosis. No large soft tissue swelling. IMPRESSION: 1. No acute fracture. Electronically signed by: Alexander Al MD 09/01/2019 5:26 AM CDT
--- NOTE | 2019-09-01 05:29 | CT ---
EXAM: CT Head Without Intravenous Contrast CLINICAL HISTORY: The patient is 88 years old and is Female; fall TECHNIQUE: Axial computed tomography images of the head/brain without intravenous contrast. Sagittal and coronal reformatted images were created and reviewed. This CT exam was performed using one or more of the following dose reduction techniques: automated exposure control, adjustment of the mA and/or kV according to patient size, and/or use of iterative reconstruction technique. COMPARISON: CT brain from 06/08/2019 FINDINGS: BRAIN: Diffuse cerebral atrophy is noted. There are periventricular white matter changes, which are likely related to chronic small vessel disease. No obvious signs of acute infarct. No intracranial hemorrhage. VENTRICLES: No hydrocephalus. BONES/JOINTS: Unremarkable. No acute fracture. SOFT TISSUES: Unremarkable. SINUSES: Unremarkable as visualized. No acute sinusitis. MASTOID AIR CELLS: Unremarkable as visualized. No mastoid effusion. IMPRESSION: No acute intracranial findings visualized. Electronically signed by: Concepción Bender MD 09/01/2019 5:27 AM CDT
[2019-09-01 05:32] VITALS: BP 107/49
[2019-09-01] MEDS ORDERED: traMADol HCL 50 MG TAB PO ONE (05:47)
== END 2019-09-01 06:26 | disposition home or self-care (01) ==
LOC: ER 04:18
DX: S06.0X0A Concussion without loss of consciousness, initial encounter (principal); R10.2 Pelvic and perineal pain; E11.9 Type 2 diabetes mellitus without complications; I10 Essential (primary) hypertension; K21.9 Gastro-esophageal reflux disease without esophagitis; Z85.6 Personal history of leukemia; F03.90 Unspecified dementia, unspecified severity, without behavioral disturbance, psychotic disturbance, mood disturbance, and anxiety; Z79.899 Other long term (current) drug therapy; Z79.82 Long term (current) use of aspirin; Z88.8 Allergy status to other drugs, medicaments and biological substances; Z91.040 Latex allergy status; Z88.0 Allergy status to penicillin; Z88.2 Allergy status to sulfonamides; W19.XXXA Unspecified fall, initial encounter; Y92.129 Unspecified place in nursing home as the place of occurrence of the external cause